=== PATIENT | male | born 1935 | race Caucasian/White ===

== ENCOUNTER → 2020-02-01 07:37 | Outpatient (REF) | payer MEDICARE, SELFPAY | LOC: ANHLAB 07:37 | PROVIDERS: PCP Internal Medicine; Visit Provider Nurse Practitioner | DX: C44.311 Basal cell carcinoma of skin of nose (principal); C44.41 Basal cell carcinoma of skin of scalp and neck | CPT/HCPCS: 88305; 88331; 88332 ==